=== PATIENT | female | born 1945 | race Caucasian/White ===

== ENCOUNTER 2016-12-28 19:36 | Emergency (ER) | payer MEDICARE ==
[~2016-12-28] VITALS: Ht 167.6 cm; Wt 76.6 kg
[~2016-12-28 19:36] MED LIST: CALCIU PO; CEFU1TAB43 PO; DIOV80TA4 PO; FENO50TA PO; FERR324T4 PO; GLUCTAB PO; GLYB1TAB51 PO; HYCO5UDC PO; MAG PO; PROT40TA PO; SYNT25TA PO; TAB-TAB PO; ZINC PO
[2016-12-28 19:39] VITALS: BP 196/91; PULSE 69; RESP 16; TEMP 98.3; O2SAT 99
[2016-12-28 19:48] VITALS: BP 196/91; PULSE 69; RESP 16; TEMP 98.3; O2SAT 99
--- NOTE | 2016-12-28 20:18 | PD ---
HPI Chief Complaint: Fall Time Seen by Provider: 20:00 Travel History International Travel<30 days: No Contact w/Intl Traveler<30days: No History of Present Illness HPI This is a 71-year-old female who presents to the emergency department having had a fall hitting her head and her right knee. She reports moderate severity pain over her right forehead, constant, with no vomiting and no associated numbness or weakness. Her headaches. She takes baby aspirin every day. She also has severe pain and swelling in her right knee making it difficult for her to walk. She did not lose consciousness when she fell. She's not sure why she fell but she doesn't remember getting lightheaded or dizzy prior to the fall and she thinks it must have been mechanical. PFSH Past Medical History Arthritis: Yes (R THUMB) Heart Rhythm Problems: No Cancer: Yes (BREAST) Cardiovascular Problems: Yes High Cholesterol: Yes Chemotherapy: No Congestive Heart Failure: No Diabetes: Yes Endocrine: Yes GERD: Yes Gout: Yes (HIGH URIC ACID LEVELS-NEVER HAD FLARE) Hepatitis: No Hiatal Hernia: No Hypertension: Yes Musculoskeletal: Yes Neurologic: No Psychiatric: No Reproductive: No Respiratory: No Radiation Therapy: No Thyroid Disease: Yes Triglycerides - High: Yes Ulcer: No Menopausal: Yes Past Surgical History Cardiac Surgery: No Cholecystectomy: Yes Genitourinary Surgery: Yes Gynecologic Surgery: Yes (TUBAL LIGATION) Neurologic Surgery: Yes (L5S1 LUMBAR LAMINECTOMY) Pacemaker: No Thoracic Surgery: Yes (R MASTECTOMY) Other Surgery: Yes Social History Alcohol Use: No Tobacco Use: No Substance Use: No Allergies-Medications (Allergen,Severity, Reaction): Coded Allergies: No Known Allergies (Verified , 12/28/16) Reported Meds & Prescriptions Reported Meds & Active Scripts Active Reported Zoloft (Sertraline HCl) 25 Mg Tab 25 Mg PO DAILY Aspirin 81 Mg Chew 81 Mg CHEW DAILY Allopurinol 100 Mg Tab 100 Mg PO DAILY Synthroid (Levothyroxine Sodium) 50 Mcg Tab 50 Mcg PO DAILY Simvastatin 10 Mg Tab 10 Mg PO DAILY Valsartan 80 Mg Tab 80 Mg PO DAILY Metformin (Metformin HCl) 500 Mg Tab 500 Mg PO BIDPC Review of Systems Except as stated in HPI: all other systems reviewed are Neg Physical Exam Narrative GENERAL:Well appearing, no acute distress SKIN: Ecchymoses over the right knee HEAD: Hematoma over the right forehead EYES: Pupils equal and round. No injection or drainage. ENT: Moist mucous membranes NECK: Trachea midline. No cervical spine tenderness. Full painless range of motion of the neck. CARDIOVASCULAR: Regular rate and rhythm. No murmur appreciated. RESPIRATORY: Clear to auscultation. Breath sounds equal bilaterally. GASTROINTESTINAL: Abdomen soft, non-tender, nondistended. MUSCULOSKELETAL: No obvious deformities. Large effusion involving the right knee joint, tender to palpation over the right patella. NEUROLOGICAL: Awake and alert. No obvious cranial nerve deficits. Moving all extremities. PSYCHIATRIC: Appropriate mood and affect; insight and judgment normal. Data Data Last Documented VS Vital Signs Date Time Temp Pulse Resp B/P (MAP) Pulse Ox O2 Delivery O2 Flow Rate FiO2 12/28/16 19:48 98.3 69 16 196/91 (126) [address] Brain W/O Iv Contrast(Rout) (12/28/16 ) Knee, Complete (4vws) (12/28/16 ) [facility] Medical Decision Making Medical Screen Exam Complete: Yes Emergency Medical Condition: Yes Interpretation(s) Afebrile, no tachycardia, hypertensive Last 24 hours Impressions Knee X-Ray 12/28/16 0000 Signed Impressions: Service Date/Time: Wednesday, December 28, 2016 20:49 - CONCLUSION: Soft tissue swelling. No definite acute bony injury Saran Siegel MD Head CT 12/28/16 0000 Signed Impressions: Service Date/Time: Wednesday, December 28, 2016 21:01 - CONCLUSION: No acute intracranial injury. Saran Siegel MD Differential Diagnosis Intracranial hemorrhage, cervical spine fracture, patellar fracture, knee sprain Narrative Course This is a 71-year-old female who presents to the emergency department with a closed head injury and a right knee injury following fall. CT of the head is unremarkable. Physical exam of the neck is benign. X-ray of the knee demonstrates no acute fracture. Patient was advised to rest, ice, wrap and elevate the knee. She'll be discharged home and can follow-up with her primary care physician or with an orthopedic physician in one week if her knee pain is not improved. Diagnosis Primary Impression: Knee sprain Qualified Codes: S83.91XA - Sprain of unspecified site of right knee, initial encounter Additional Impression: Closed head injury Qualified Codes: S09.90XA - Unspecified injury of head, initial encounter Patient Instructions: General Instructions Additional Instructions: If you develop severe worsening headache, persistent vomiting, numbness, weakness, difficulty walking or difficulty talking return to the emergency department immediately. Rest, ice, Christian[place] wrap and elevate your knee. If it's not improved in one week follow-up with an orthopedic doctor. Med/Other Pt SpecificInfo: No Change to Meds Disposition: 01 DISCHARGE HOME Condition: Stable Rosalba Hennessy MD Dec 28, 2016 20:18
[2016-12-28] MEDS ORDERED: METF500T PO (20:32)
[2016-12-28] MEDS ORDERED: ALLO100T PO (20:32)
[2016-12-28] MEDS ORDERED: LEVO.05 PO (20:32)
[2016-12-28] MEDS ORDERED: ASPI-516 CHEW (20:32)
[2016-12-28] MEDS ORDERED: ZOLO25TA PO (20:32)
[2016-12-28] MEDS ORDERED: SIMV10TA PO (20:32)
[2016-12-28] MEDS ORDERED: VALS1TAB64 PO (20:32)
--- NOTE | 2016-12-28 21:53 | RADRPT ---
EXAM DATE/TIME: 12/28/2016 20:49 [facility] COMPARISON: No previous studies available for comparison. INDICATIONS : Trauma, fall. MEDICAL HISTORY : None. SURGICAL HISTORY : None. ENCOUNTER: Initial ACUITY: 1 day PAIN SCORE: 5/10 LOCATION: Right anterior knee FINDINGS: There is prominent ventral and medial soft tissue swelling. No evidence of underlying fracture, dislo cation or joint effusion. CONCLUSION: Soft tissue swelling. No definite acute bony injury Saran Siegel MD on December 28, 2016 at 21:51 Board Certified Radiologist. This report was verified electronically.
--- NOTE | 2016-12-28 22:02 | RADRPT ---
EXAM DATE/TIME: 12/28/2016 21:01 [facility] COMPARISON: No previous studies available for comparison. INDICATIONS : Trauma, fall. RADIATION DOSE: 58.71 CTDIvol (mGy) MEDICAL HISTORY : None SURGICAL HISTORY : None. ENCOUNTER: Initial ACUITY: 1 day PAIN SCALE: 5/10 LOCATION: cranial TECHNIQUE: Multiple contiguous axial images were obtained of the head. Using automated exposure control and adj ustment of the mA and/or kV according to patient size, radiation dose was kept as low as reasonably a chievable to obtain optimal diagnostic quality images. DICOM format image data is available electro nically for review and comparison. FINDINGS: CEREBRUM: The ventricles are normal for age. No evidence of midline shift, mass lesion, hemorrhage or acute in farction. No extra-axial fluid collections are seen. POSTERIOR FOSSA: The cerebellum and brainstem are intact. The 4th ventricle is midline. The cerebellopontine angle i s unremarkable. EXTRACRANIAL: The visualized portion of the orbits is intact. SKULL: The calvaria is intact. No evidence of skull fracture. Mild right frontal scalp swelling. CONCLUSION: No acute intracranial injury. Saran Siegel MD on December 28, 2016 at 21:59 Board Certified Radiologist. This report was verified electronically.
[2016-12-28 22:59] VITALS: BP 176/72
== END 2016-12-28 23:01 | disposition home or self-care (01) ==
LOC: PHED 19:36
DX: S83.91XA Sprain of unspecified site of right knee, initial encounter (principal); S09.90XA Unspecified injury of head, initial encounter; E11.9 Type 2 diabetes mellitus without complications; I10 Essential (primary) hypertension; W19.XXXA Unspecified fall, initial encounter
CPT/HCPCS: 70450; 73564; 99284